=== PATIENT | female | born 2000 | race African-American/Black ===

== ENCOUNTER 2019-03-12 07:57 | Emergency (ER) | payer OTHER, MEDICAID ==
[~2019-03-12] VITALS: Ht 167.6 cm; Wt 59.0 kg
[2019-03-12 08:09] VITALS: BP 117/76
--- NOTE | 2019-03-12 08:22 | NUR ---
URINE SPECIMEN COLLECTED AND SENT TO LAB.
--- NOTE | 2019-03-12 08:23 | NUR ---
AT BEDSIDE FOR EVAL.
[2019-03-12 08:27] LABS: APPEARANCE,URINE Clear (CLEAR); BILIRUBIN,URINE Negative (NEGATIVE); BLOOD, URINE Large Ery/uL (NEGATIVE); COLOR,URINE Yellow (YELLOW); KETONES,URINE Negative (NEGATIVE); LEUKOCYTE ESTERASE ,URINE Small (NEGATIVE); NITRITE, URINE Negative (NEGATIVE); PROTEIN,URINE 30 mg/dl (NEGATIVE); UGLUCOSE Negative (NEGATIVE); UROBILINOGEN,URINE 0.2 EU/dL (0.2)
[2019-03-12] MEDS ORDERED: IBUPROFEN 600 MG TABLET PO ONE ×2 (08:27→08:30)
[2019-03-12 08:28] LABS: BACTERIA,URINE Few /HPF (None Seen); SQUAMOUS EPITHELIAL CELL,UR Few /HPF (None Seen)
[2019-03-12] MEDS ORDERED: FLUCONAZOLE (100 MG) 100 MG TABLET PO ONE (09:00)
[2019-03-12] MEDS ORDERED: FLUCONAZOLE (100 MG) 100 MG TABLET ONE (09:04)
--- NOTE | 2019-03-12 09:08 | NUR ---
Patient discharged to home in stable condition. Written and verbal after care instructions given. Patient verbalizes understanding of instruction.
== END 2019-03-12 09:09 | disposition home or self-care (01) ==
LOC: ER 08:02
DX: N39.0 Urinary tract infection, site not specified (principal)
CPT/HCPCS: 81000-TC; 87086-TC; 87186-TC

== ENCOUNTER 2019-07-20 11:05 | Emergency (ER) | payer OTHER, MEDICAID ==
[~2019-07-20] VITALS: Ht 167.6 cm; Wt 59.0 kg
--- NOTE | 2019-07-20 11:19 | NUR ---
PT BIB SELF C/O ABDOMINAL PAIN AND CRAMPING FOR 2 DAYS, PT IS AAOX4, NOT IN RESPIRATORY DISTRESS, HOOKED TO MONITOR, KEPT RESTED AND COMFORTABLE, WILL CONTINUE TO MONITOR.
--- NOTE | 2019-07-20 11:20 | NUR ---
URINE SPECIMEN COLLECTED AND SENT TO LAB.
--- NOTE | 2019-07-20 11:28 | NUR ---
PT SEEN AND EXAMINED BY [facility].
[2019-07-20 11:35] LABS: APPEARANCE,URINE Clear (CLEAR); BILIRUBIN,URINE Negative (NEGATIVE); BLOOD, URINE Negative Ery/uL (NEGATIVE); COLOR,URINE Yellow (YELLOW); KETONES,URINE Negative (NEGATIVE); LEUKOCYTE ESTERASE ,URINE Negative (NEGATIVE); NITRITE, URINE Negative (NEGATIVE); PROTEIN,URINE Negative (NEGATIVE); UGLUCOSE Negative (NEGATIVE); UROBILINOGEN,URINE 0.2 EU/dL (0.2)
--- NOTE | 2019-07-20 11:38 | NUR ---
[facility]CH AT BEDSIDE FOR US.
[2019-07-20 12:34] VITALS: BP 117/72
--- NOTE | 2019-07-20 12:34 | NUR ---
Patient discharged to home in stable condition. Written and verbal after care instructions given. Patient verbalizes understanding of instruction.
== END 2019-07-20 12:36 | disposition home or self-care (01) ==
LOC: ER 11:10
DX: R10.2 Pelvic and perineal pain (principal)
CPT/HCPCS: 76856-TC; 81000-TC; 84703-TC; 87210-TC